=== PATIENT | male | born 1970 | race Caucasian/White ===

== ENCOUNTER 2020-12-19 10:00 | Emergency (ER) | payer MEDICAID, MEDICARE ==
--- NOTE | 2020-12-19 10:49 | ED Physician Documentation ---
PD HPI LOWER EXT INJURY - Stated complaint Stated Complaint: LT KNEE PX - Chief complaint Chief Complaint: Trauma Ext - History obtained from History obtained from: Patient - Additional information Additional information: Patient comes emergency department chief complaint of lateral knee pain after an injury 2 weeks ago. He states he stepped off of his porch wrong and felt as though his lower leg "went out to the side. He states he felt as though his patella may have dislocated but then popped back in, and there is not sure because when he landed, the patella seemed aligned. Patient states that when he was a child, he had spontaneous patellar dislocations, which he could reduce himself by straightening his knee. He states that about a year ago, he had another injury to his left knee he had some pain and swelling in the knee which after some weeks finally went away. Patient states that when his current injury first happened, his knee was quite swollen, but the pain was not very notice able, and he did not feel the need to have it evaluated. However, the swelling went down but the pain seemed to get worse, which has the patient concerned. He states that he is fine with bearing weight on the knee, but it is when he does a fluid motion, such as walking, or when he flexes his weighted knee, such as sitting down on the couch, that he feels a pain or for external sensation in the lateral aspect of the knee. Patient has never had an MRI. No other complaints at this time. Review of Systems Ten Systems: 10 systems reviewed and negative Constitutional: reports: Reviewed and negative Eyes: reports: Reviewed and negative Ears: reports: Reviewed and negative Nose: reports: Reviewed and negative Throat: reports: Reviewed and negative Cardiac: reports: Reviewed and negative Respiratory: reports: Reviewed and negative GI: reports: Reviewed and negative : reports: Reviewed and negative Skin: reports: Reviewed and negative Musculoskeletal: reports: Extremity pain. denies: Pain with weight bearing Neurologic: reports: Reviewed and negative Psychiatric: reports: Reviewed and negative Endocrine: reports: Reviewed and negative Immunocompromised: reports: Reviewed and negative PD PAST MEDICAL HISTORY - Past Medical History Past Medical History: Yes Cardiovascular: None Respiratory: None Neuro: None Endocrine/Autoimmune: None GI: None : None HEENT: None Psych: Anxiety Musculoskeletal: None Derm: None - Past Surgical History Past Surgical History: Yes General: Appendectomy - Present Medications Home Medications: Ambulatory Orders Medication Instructions Recorded Confirmed No Known Home Medications 12/19/20 12/19/20 - Allergies Allergies/Adverse Reactions: Allergies Allergy/AdvReac Type Severity Reaction Status Date / Time No Known Drug Allergies Allergy Verified 12/19/20 10:04 - Social History Does the pt smoke?: No Smoking Status: Former smoker Does the pt drink ETOH?: Yes Does the pt have substance abuse?: Yes Substance Use and Type: Marijuana - Immunizations Immunizations are current?: Yes PD ED PE NORMAL - Vitals Vital signs reviewed: Yes - General General: Alert and oriented X 3, No acute distress, Well developed/nourished - HEENT HEENT: Atraumatic, PERRL, Moist mucous membranes - Neck Neck: Supple, no meningeal sign - Respiratory Respiratory: No respiratory distress - Derm Derm: Normal color, Warm and dry, No rash - Extremities Extremities: No deformity, Other (Slight left knee effusion noted. Full extension, but flexion limited to just past 90 degrees. Point tenderness at the lateral tibial tubercle. Mild tenderness over the joint line. Patella is midline nondeformed. Able to raise straight leg.) - Neuro Neuro: Alert and oriented X 3, No motor deficit, No sensory deficit - Psych Psych: Normal mood, Normal affect Results - Vitals Vitals: Vital Signs - 24 hr 12/19/20 12/19/20 10:05 11:27 Temperature 36.3 C L 36.3 C L Heart Rate 78 64 Respiratory 18 18 Rate Blood Pressure 122/78 122/71 O2 Saturation 100 97 Oxygen O2 Source Room air - Rads (name of study) L knee xr Radiology: Final report received, EMP read indepedently, See rad report PD MEDICAL DECISION MAKING - ED course Complexity details: reviewed results, re-evaluated patient, considered differential, d/w patient ED course: Patient was worked up with x-ray series of left knee, which was unremarkable. We have discussed the symptoms will most likely be self-limited, but that patient may benefit from following with orthopedics to have his patellar tracking further evaluated and determine whether MRI is indicated. We discussed symptomatic management at home with the usual indications for return. Departure - Departure Disposition: 01 Home, Self Care Clinical Impression: Knee injury Knee sprain Qualifiers: Encounter type: initial encounter Involved ligament of knee: unspecified ligament Laterality: left Qualified Code(s): S83.92XA - Sprain of unspecified site of left knee, initial encounter Condition: Stable Instructions: ED Sprain Knee Follow-Up: Juan Escalante MD [Provider Admit Priv/Credential] - Comments: Your x-ray series looks good. You have most likely sprained your knee, though you may also have some patellar tracking abnormalities from your history of patellar dislocation. As far as his sprain, this sort of injury will often heal on its own in time, that this takes several weeks. During this time, you may have some pain or intermittent swelling. If you have a tracking abnormality, this will not resolve on its own, and you should follow-up with orthopedics to determine whether this is present, given your history. You may also have a meniscal injury, and orthopedics can evaluate and determine whether this is likely, as well. MRI may be helpful test to further evaluate your knee. This is not done emergently in the emergency department for situations such as this, but orthopedics can order this as an outpatient. You may take ibuprofen and Tylenol to help with the symptoms and apply ice as needed. Discharge Date/Time: 12/19/20 11:38
--- NOTE | 2020-12-19 11:08 | XRAY Report ---
PROCEDURE: Knee 4 View LT INDICATIONS: injury, lateral pain TECHNIQUE: 4 views of the left knee were acquired. COMPARISON: None. FINDINGS: Bones: No acute fractures or dislocations. No suspicious bony lesions. Soft tissues: Moderate joint effusion. No suspicious soft tissue calcifications. IMPRESSION: No acute osseous abnormality. Moderate joint effusion. If there is clinical concern or p ersistent symptoms, additional imaging such as repeat radiographs or advanced imaging (e.g. CT, MRI) may be helpful for further evaluation. Reviewed by: Patrick Ahn MD on 12/19/2020 11:06 AM PST Approved by: Patrick Ahn MD on 12/19/2020 11:06 AM PST Station ID: [id number]
[2020-12-19 11:28] VITALS: BP 122/71
== END 2020-12-19 11:38 | disposition home or self-care (01) ==
LOC: ED 10:00
DX: S83.92XA Sprain of unspecified site of left knee, initial encounter (principal); W17.89XA Other fall from one level to another, initial encounter; X50.1XXA Overexertion from prolonged static or awkward postures, initial encounter; Z87.891 Personal history of nicotine dependence
CPT/HCPCS: 99282; 99283